=== PATIENT | female | born 1995 | race Caucasian/White ===

== ENCOUNTER → 2020-12-02 | Outpatient (CLI) | payer BC, OTHER ==
[~2020-12-02] MED LIST: Voltaren Gel 1 % TOP
[2020-12-02 10:57] LABS: HEMOGLOBIN 12.6 gm/dl (12.3-15.3); RED BLOOD COUNT 4.33 M/UL (4.00-5.10); WHITE BLOOD COUNT 7.4 K/UL (4.5-11.0)
[2020-12-02 11:21] LABS: BUN/CREATININE RATIO 21 (0-10)
== END ==
LOC: LAB 10:16
PROVIDERS: Nurse Practitioner
DX: R53.83 Other fatigue (principal); F41.9 Anxiety disorder, unspecified
CPT/HCPCS: 36415; 80053; 80061; 82607; 84439; 84443; 85027

== ENCOUNTER → 2020-12-18 | Outpatient (CLI) | payer BC, OTHER | LOC: RAD 10:44 | DX: R07.1 Chest pain on breathing (principal); R10.13 Epigastric pain; S20.212A Contusion of left front wall of thorax, initial encounter; S22.32XA Fracture of one rib, left side, initial encounter for closed fracture | CPT/HCPCS: 71046 ==

== ENCOUNTER 2021-07-12 22:20 | Emergency (ER) | payer OTHER ==
[2021-07-12 23:16] LABS: HEMOGLOBIN 13.3 gm/dl (12.3-15.3); RED BLOOD COUNT 4.35 M/UL (4.00-5.10); WHITE BLOOD COUNT 8.8 K/UL (4.5-11.0)
[2021-07-12 23:36] LABS: BUN/CREATININE RATIO 21 (0-10)
== END 2021-07-13 02:42 | disposition home or self-care (01) ==
LOC: ER1 22:20
PROVIDERS: Family Medicine
DX: R10.9 Unspecified abdominal pain (principal); R10.813 Right lower quadrant abdominal tenderness; R68.83 Chills (without fever); Z20.822 Contact with and (suspected) exposure to COVID-19; F17.290 Nicotine dependence, other tobacco product, uncomplicated; Z88.8 Allergy status to other drugs, medicaments and biological substances
CPT/HCPCS: 0240U; 80053; 81001; 83605; 83690; 84703; 85025; 99284; J7030